=== PATIENT | male | born 1955 | race Caucasian/White ===

== ENCOUNTER 2016-08-27 12:02 | Emergency (ER) | payer BC ==
[2016-08-27 12:28] VITALS: TEMP 99.3; O2SAT 97
[2016-08-27] MEDS ORDERED: DEXAMETHASONE 10 MG/ML VIAL IVP ONE (13:19)
[2016-08-27] MEDS ORDERED: FAMOTIDINE 20 MG/2 ML SDV IVP ONE (13:19)
--- NOTE | 2016-08-27 13:26 | UCPHY ---
H & P Time Seen by Provider: 08/27/16 13:04 Patient Type: New HPI/ROS: 61-year-old male presents complaining of lip swelling of approximately 1-2 days duration, he was recently started on a cholesterol medicine approximately 1 week ago as well as restarted on lisinopril. States he did not take any of the cholesterol medicine today however he did take both Benadryl and the lisinopril at approximately 6:00 a.m. and his swelling has increased. He denies any other unusual exposures. No difficulty breathing no difficulty swallowing Review of systems As per HPI General no fever no chills no weakness HEENT no eye pain no eye discharge. No eye redness, no sore throat Respiratory no cough, no shortness of breath Cardiac no chest pain, no peripheral edema GI no abdominal pain, no diarrhea, no constipation, no nausea, no vomiting no flank pain, no hematuria, no dysuria Musculoskeletal no myalgias, no joint pain Heme no easy bruising, no easy bleeding Endo no polyuria, no polydipsia Skin no rashes, no pruritus Neuro no syncope, no dizziness, no headaches Psych is no suicidal ideation, no homicidal ideation Past Medical/Surgical History: Hypertension hypercholesterolemia Social History: Denies excessive alcohol or drug States he walks 6 miles each day Smoking Status: Never smoked Physical Exam: 61-year-old male alert and oriented no acute distress nontoxic appearance afebrile HEENT atraumatic normocephalic, extraocular muscles intact, anicteric Lip swelling present No uvular edema, no stridor Oropharynx negative for erythema negative exudate, tolerating her own secretions Neck supple no meningismus Lungs clear to auscultation bilaterally, no wheezing Heart regular rate and rhythm without murmur rub or gallop Abdomen nondistended normoactive bowel sounds soft nontender Back no CVA tenderness, no step-offs, no spinal tenderness Extremities no cyanosis clubbing or edema Neuro alert and oriented, no focal deficits Skin-no urticaria Constitutional: Initial Vital Signs Temperature (C) 37.4 C 08/27/16 12:24 Heart Rate 106 H 08/27/16 12:24 Respiratory Rate 16 08/27/16 12:24 Blood Pressure 132/80 H 08/27/16 12:24 O2 Sat (%) 97 08/27/16 12:24 O2 Delivery Mode Room Air Allergies/Adverse Reactions: atorvastatin Allergy (Verified 08/27/16 12:23) Home Medications: Medication Instructions Recorded Atorvastatin Calcium 20 mg 08/27/16 Famotidine [Pepcid 20 MG (*)] 20 mg PO BID #10 tab 08/27/16 Lisinopril 08/27/16 diphenhydrAMINE HCL 50 mg PO Q8 PRN #30 capsule 08/27/16 [DIPHENHYDRAMINE HCL] methylPREDNISolone [Medrol Dose 1 each PO AD #1 ea 08/27/16 Rick] Medical Decision Making ED Course/Re-evaluation: Patient seen and evaluated for swelling to his lips Differential diagnosis included Allergic reaction, angioedema secondary to lisinopril, lip abscess, insect sting History and physical exam consistent with angioedema secondary to lisinopril patient recently restarted on lisinopril Patient given famotidine, Decadron, had already taken diphenhydramine at home Impression Angioedema secondary to lisinopril Plan Stop lisinopril Check-in with your PCP as to whether restart a different antihypertensive Home with Rx for Medrol Dosepak and famotidine 20 mg p.o. twice daily x5 days - Data Points Medications Given: Discontinued Medications Dexamethasone (Decadron Injection) 10 mg IVP EDNOW ONE Stop: 08/27/16 13:20 Last Admin: 08/27/16 13:35 Dose: 10 mg Famotidine (Pepcid) 20 mg IVP EDNOW ONE Stop: 08/27/16 13:20 Last Admin: 08/27/16 13:35 Dose: 20 mg Departure - Departure Disposition: Home, Routine, Self-Care Clinical Impression: Angioedema of lips, Allergy to lisinopril Condition: Good Instructions: Angioedema (ED) Additional Instructions: Follow-up with your primary care physician in 1-2 days to be placed on a new antihypertensive. Do not take any lisinopril. Medrol Dosepak, take as directed Famotidine 20 mg twice a day for 5 days Diphenhydramine every 6 hours as needed for itching or swelling. Return to your closest emergency room if you are having difficulty breathing or difficulty swallowing. Referrals: Nayan Berry DO [Primary Care Provider] - As per Instructions Prescriptions: diphenhydrAMINE HCL [DIPHENHYDRAMINE HCL] 50 mg PO Q8 PRN #30 capsule PRN Reason: Rash Famotidine [Pepcid 20 MG (*)] 20 mg PO BID #10 tab methylPREDNISolone [Medrol Dose Rick] 1 each PO AD #1 ea - PQRS PQRS Measurement: na
[2016-08-27 14:32] VITALS: BP 135/62; PULSE 74; RESP 18
== END 2016-08-27 14:30 | disposition home or self-care (01) ==
LOC: CED 12:02
DX: T78.3XXA Angioneurotic edema, initial encounter (principal); I10 Essential (primary) hypertension; E78.00 Pure hypercholesterolemia, unspecified
CPT/HCPCS: G0463-PO